=== PATIENT | male | born 1975 | race Two or more races ===

== ENCOUNTER 2024-12-11 11:48 | Emergency (ER) | payer OTHER ==
[~2024-12-11] VITALS: Ht 162.6 cm; Wt 108.9 kg
[2024-12-11] MEDS ORDERED: FAMOTIDINE/PF 20 MG/2 ML VIAL IV PUSH STA (13:27)
[2024-12-11] MEDS ORDERED: METHYLPREDNISOLONE SOD SUCC 125 MG VIAL IM STA (13:29)
[2024-12-11] MEDS ORDERED: METHYLPREDNISOLONE SOD SUCC 125 MG VIAL ONE (13:35)
[2024-12-11] MEDS ORDERED: FAMOTIDINE/PF 20 MG/2 ML VIAL ONE (13:35)
== END 2024-12-11 14:43 | disposition home or self-care (01) ==
LOC: ER 11:49
DX: L50.9 Urticaria, unspecified (principal)